=== PATIENT | male | born 1955 | race African-American/Black ===

== ENCOUNTER 2017-07-21 11:28 | Emergency (ER) | payer MEDICARE, OTHER ==
[~2017-07-21] VITALS: Ht 177.8 cm; Wt 75.0 kg
[~2017-07-21 11:28] MED LIST: AMLO10TA4 PO; ASPI-1079 PO; CLON0.1T PO; CLOP75TA16 PO; LOSA50TA20 PO; OMEP20CA4 PO; SIMV40TA5 PO
[2017-07-21 12:34] LABS: HEMATOCRIT. 30.6 % (42.0-52.0); HEMOGLOBIN. 10.1 g/dL (14.0-18.0); MEAN CORPUSCULAR HEMOGLOBIN 34.2 pg (28.0-32.0); MEAN CORPUSCULAR VOLUME 103.2 fL (80.0-94.0); MEAN PLATELET VOLUME 7.3 fl (7.4-10.4); PLATELET 157 x1000/uL (130-400); RED BLOOD CELL COUNT 2.97 mill/uL (4.7-6.1); RED CELL DISTRIBUTION WIDTH 17.5 % (11.6-14.6)
[2017-07-21 12:40] LABS: CHLORIDE 119 mEq/L (98-107)
[2017-07-21 12:51] LABS: CARBON DIOXIDE 24 mEq/L (21-32)
[2017-07-21 12:56] LABS: ETHANOL BLOOD 352 mg/dL
[2017-07-21 12:59] LABS: PLATELET ESTIMATE NORMAL
[2017-07-21 17:15] VITALS: BP 129/79
== END 2017-07-21 18:14 | disposition home or self-care (01) ==
LOC: ER 12:48
DX: F10.129 Alcohol abuse with intoxication, unspecified (principal); I10 Essential (primary) hypertension; Z86.73 Personal history of transient ischemic attack (TIA), and cerebral infarction without residual deficits; Z79.82 Long term (current) use of aspirin
CPT/HCPCS: 36415; 80053; 85025; 99284; G0482

== ENCOUNTER 2018-03-20 15:12 | Inpatient (IN) | payer MEDICARE, MEDICAID ==
[~2018-03-20] VITALS: Ht 172.7 cm; Wt 65.8 kg
[2018-03-20 16:39] LABS: HEMOGLOBIN. 9.9 g/dL (14.0-18.0); MEAN CORPUSCULAR HEMOGLOBIN 34.4 pg (28.0-32.0); MEAN CORPUSCULAR VOLUME 101.2 fL (80.0-94.0); RED BLOOD CELL COUNT 2.87 mill/uL (4.7-6.1); RED CELL DISTRIBUTION WIDTH 15.5 % (11.6-14.6)
[2018-03-20 16:45] LABS: CHLORIDE 99 mEq/L (98-107)
[2018-03-20 17:03] LABS: PLATELET 36 x1000/uL (130-400)
[2018-03-20 17:05] LABS: PLATELET ESTIMATE MARKEDLY DECREASED
[2018-03-20 17:36] LABS: INR 1.1; PARTIAL THROMBOPLASTIN TIME 28.9 sec (23.4-31.0); PROTHROMBIN TIME 11.4 sec (9.4-11.6)
[2018-03-20] MEDS ORDERED: MAGNESIUM 2 G PREMIX 50 ML IV ONE (18:45)
[2018-03-20 20:45] VITALS: BP 147/103
[2018-03-20] MEDS ORDERED: CLONIDINE 0.1MG TABLET PO PRN (22:15)
[2018-03-20] MEDS ORDERED: ONDANSETRON HCL 4MG/2ML VIAL IV PRN (22:15)
[2018-03-20] MEDS ORDERED: ACETAMINOPHEN 325MG TABLET PO PRN (22:15)
[2018-03-20] MEDS: MULTIVITAMINS,THER W-MINERALS TABLET PO SCH (22:40)
[2018-03-20] MEDS: ATORVASTATIN CALCIUM 20MG TABLET PO SCH (22:40)
[2018-03-20] MEDS: THIAMINE HCL 100MG TABLET PO SCH (22:40)
[2018-03-20] MEDS: METOPROLOL TARTRATE 50MG TABLET PO SCH (22:40)
[2018-03-20] MEDS: FOLIC ACID 1MG TABLET PO SCH (22:40)
[2018-03-21] VITALS: BP 128/83
[2018-03-21 04:00] VITALS: BP 175/111
[2018-03-21 06:31] LABS: BASOPHILS % 0.6 % (0.0-2.0); EOSINOPHILS % 0.7 % (0.0-5.0); HEMATOCRIT. 22.2 % (42.0-52.0); HEMOGLOBIN. 7.8 g/dL (14.0-18.0); LYMPHOCYTES % 11.6 % (20.0-50.0); MEAN CORPUSCULAR HEMOGLOBIN 35.2 pg (28.0-32.0); MEAN CORPUSCULAR VOLUME 100.3 fL (80.0-94.0); MEAN PLATELET VOLUME 8.6 fl (7.4-10.4); NEUTROPHILS % 81.1 % (40.0-76.0); RED BLOOD CELL COUNT 2.21 mill/uL (4.7-6.1); RED CELL DISTRIBUTION WIDTH 15.4 % (11.6-14.6)
[2018-03-21 07:02] LABS: PLATELET 29 x1000/uL (130-400)
[2018-03-21 07:43] LABS: CHLORIDE 100 mEq/L (98-107)
[2018-03-21 08:00] VITALS: BP 149/94
[2018-03-21 08:20] LABS: FOLIC ACID (FOLATE) SERUM 13.1 ng/mL (>5.38)
[2018-03-21] MEDS: THIAMINE HCL 100MG TABLET PO SCH (09:29)
[2018-03-21] MEDS: OMEPRAZOLE 20MG CAPSULE EXTENDED RELEASE PO SCH (09:29)
[2018-03-21] MEDS: FOLIC ACID 1MG TABLET PO SCH (09:29)
[2018-03-21] MEDS: MULTIVITAMINS,THER W-MINERALS TABLET PO SCH (09:29)
[2018-03-21] MEDS: AMLODIPINE 10MG TABLET PO SCH (09:29)
[2018-03-21] MEDS: METOPROLOL TARTRATE 50MG TABLET PO SCH (09:29)
[2018-03-21] MEDS: POTASSIUM CHLORIDE INJ 40 MEQ in DEXT 5% WATER 250 ML IV SCH ×2 (11:32→16:44)
[2018-03-21] MEDS: LOSARTAN POTASSIUM 50 MG TABLET PO SCH ×2 (11:35→21:20)
[2018-03-21 12:00] VITALS: BP 110/72
[2018-03-21] MEDS ORDERED: MAGNESIUM 2 G PREMIX 50 ML IV SCH (12:00)
[2018-03-21] MEDS ORDERED: POTASSIUM CHLORIDE INJ 40 MEQ in DEXT 5% WATER 250 ML IV SCH (13:00)
[2018-03-21 15:33] LABS: AMMONIA 25 uMol/L (<32)
[2018-03-21 16:00] VITALS: BP 110/77
[2018-03-21] MEDS: MAGNESIUM OXIDE 400MG TABLET PO SCH (16:44)
[2018-03-21 20:00] VITALS: BP 116/84
[2018-03-21] MEDS: CARVEDILOL 12.5MG TABLET PO SCH (21:20)
[2018-03-21] MEDS: ATORVASTATIN CALCIUM 20MG TABLET PO SCH (21:20)
[2018-03-22] VITALS: BP 117/83
[2018-03-22 04:00] VITALS: BP 133/81
[2018-03-22 08:00] VITALS: BP 146/86
[2018-03-22] MEDS: OMEPRAZOLE 20MG CAPSULE EXTENDED RELEASE PO SCH (08:00)
[2018-03-22 08:16] LABS: BASOPHILS % 0.7 % (0.0-2.0); EOSINOPHILS % 1.3 % (0.0-5.0); HEMATOCRIT. 22.1 % (42.0-52.0); HEMOGLOBIN. 7.5 g/dL (14.0-18.0); MEAN CORPUSCULAR HEMOGLOBIN 33.6 pg (28.0-32.0); MEAN PLATELET VOLUME 9.8 fl (7.4-10.4); MONOCYTES % 6.2 % (2.0-8.0); NEUTROPHILS % 79.8 % (40.0-76.0); RED BLOOD CELL COUNT 2.23 mill/uL (4.7-6.1)
[2018-03-22 08:34] LABS: CHLORIDE 100 mEq/L (98-107)
[2018-03-22] MEDS: FOLIC ACID 1MG TABLET PO SCH (09:08)
[2018-03-22] MEDS: MULTIVITAMINS,THER W-MINERALS TABLET PO SCH (09:08)
[2018-03-22] MEDS: LOSARTAN POTASSIUM 50 MG TABLET PO SCH ×2 (09:08→20:24)
[2018-03-22] MEDS: AMLODIPINE 10MG TABLET PO SCH (09:08)
[2018-03-22] MEDS: THIAMINE HCL 100MG TABLET PO SCH (09:08)
[2018-03-22] MEDS: MAGNESIUM OXIDE 400MG TABLET PO SCH (09:08)
[2018-03-22] MEDS: CARVEDILOL 12.5MG TABLET PO SCH ×2 (09:08→20:24)
[2018-03-22 10:00] LABS: PLATELET ESTIMATE MARKEDLY DECREASED
[2018-03-22 10:01] LABS: PLATELET 35 x1000/uL (130-400)
[2018-03-22 12:00] VITALS: BP 98/65
[2018-03-22 16:00] VITALS: BP 98/63
[2018-03-22] MEDS: FUROSEMIDE 40MG TABLET PO SCH (17:08)
[2018-03-22 20:00] VITALS: BP 138/81
[2018-03-22] MEDS: AMLODIPINE 5MG TABLET PO SCH (20:24)
[2018-03-22] MEDS: ATORVASTATIN CALCIUM 20MG TABLET PO SCH (20:24)
[2018-03-23] VITALS (13 sets, daily range): BP systolic 107–147; BP diastolic 74–102
[2018-03-23] MEDS: OMEPRAZOLE 20MG CAPSULE EXTENDED RELEASE PO SCH (06:47)
[2018-03-23 07:03] LABS: BASOPHILS % 0.5 % (0.0-2.0); EOSINOPHILS % 1.4 % (0.0-5.0); LYMPHOCYTES % 10.4 % (20.0-50.0); MEAN CORPUSCULAR HEMOGLOBIN 33.4 pg (28.0-32.0); MEAN CORPUSCULAR VOLUME 98.8 fL (80.0-94.0); MONOCYTES % 6.4 % (2.0-8.0); NEUTROPHILS % 81.3 % (40.0-76.0); RED BLOOD CELL COUNT 2.07 mill/uL (4.7-6.1); RED CELL DISTRIBUTION WIDTH 15.7 % (11.6-14.6)
[2018-03-23 07:29] LABS: HEMATOCRIT. 20.5 % (42.0-52.0); HEMOGLOBIN. 6.9 g/dL (14.0-18.0)
[2018-03-23 07:30] LABS: PLATELET 41 x1000/uL (130-400)
[2018-03-23 08:08] LABS: CHLORIDE 99 mEq/L (98-107)
[2018-03-23] MEDS: FUROSEMIDE 40MG TABLET PO SCH (10:21)
[2018-03-23] MEDS: FOLIC ACID 1MG TABLET PO SCH (10:21)
[2018-03-23] MEDS: THIAMINE HCL 100MG TABLET PO SCH (10:21)
[2018-03-23] MEDS: LOSARTAN POTASSIUM 50 MG TABLET PO SCH ×2 (10:22→20:35)
[2018-03-23] MEDS: MAGNESIUM OXIDE 400MG TABLET PO SCH (10:22)
[2018-03-23] MEDS: AMLODIPINE 5MG TABLET PO SCH ×2 (10:22→20:36)
[2018-03-23] MEDS: MULTIVITAMINS,THER W-MINERALS TABLET PO SCH (10:22)
[2018-03-23] MEDS: CARVEDILOL 12.5MG TABLET PO SCH ×2 (10:22→20:36)
[2018-03-23] MEDS ORDERED: POTASSIUM CHLORIDE 20MEQ TABLET SR PO NR (13:00)
[2018-03-23] MEDS ORDERED: METRONIDAZOLE 500MG TABLET PO SCH (15:30)
[2018-03-23 19:50] LABS: HEPATITIS B SURFACE ANTIGEN NEGATIVE
[2018-03-23 20:18] LABS: HEPATITIS B CORE AB IGM NEGATIVE
[2018-03-23 20:19] LABS: HEPATITIS A AB IGM NEGATIVE (NEGATIVE)
[2018-03-23] MEDS: PANTOPRAZOLE SODIUM 40 MG/VIAL IV SCH (20:36)
[2018-03-23] MEDS: ATORVASTATIN CALCIUM 20MG TABLET PO SCH (20:36)
[2018-03-23 20:43] LABS: HEMATOCRIT 26.5 % (42.0-52.0); HEMOGLOBIN 9.1 g/dL (14.0-18.0)
[2018-03-23 20:57] LABS: AMMONIA 40 uMol/L (<32)
[2018-03-24 00:26] VITALS: BP 144/90
[2018-03-24 01:29] VITALS: BP 152/80
[2018-03-24] MEDS: METRONIDAZOLE 500MG TABLET PO SCH ×3 (01:31→17:47)
[2018-03-24 03:53] VITALS: BP 140/90
[2018-03-24 08:14] VITALS: BP 134/90
[2018-03-24] MEDS: PANTOPRAZOLE SODIUM 40 MG/VIAL IV SCH ×2 (09:08→22:14)
[2018-03-24] MEDS: MULTIVITAMINS,THER W-MINERALS TABLET PO SCH (09:09)
[2018-03-24] MEDS: THIAMINE HCL 100MG TABLET PO SCH (09:09)
[2018-03-24] MEDS: LOSARTAN POTASSIUM 50 MG TABLET PO SCH ×2 (09:09→21:00)
[2018-03-24] MEDS: AMLODIPINE 5MG TABLET PO SCH ×2 (09:09→21:00)
[2018-03-24] MEDS: CARVEDILOL 12.5MG TABLET PO SCH ×2 (09:09→21:00)
[2018-03-24] MEDS: FUROSEMIDE 40MG TABLET PO SCH (09:09)
[2018-03-24] MEDS: FOLIC ACID 1MG TABLET PO SCH (09:09)
[2018-03-24] MEDS: MAGNESIUM OXIDE 400MG TABLET PO SCH (09:10)
[2018-03-24 09:30] LABS: BASOPHILS % 0.5 % (0.0-2.0); HEMATOCRIT. 26.5 % (42.0-52.0); HEMOGLOBIN. 9.2 g/dL (14.0-18.0); LYMPHOCYTES % 8.3 % (20.0-50.0); MEAN CORPUSCULAR HEMOGLOBIN 32.1 pg (28.0-32.0); MEAN CORPUSCULAR VOLUME 92.6 fL (80.0-94.0); MEAN PLATELET VOLUME 8.9 fl (7.4-10.4); MONOCYTES % 9.9 % (2.0-8.0); NEUTROPHILS % 80.3 % (40.0-76.0); PLATELET 90 x1000/uL (130-400); RED BLOOD CELL COUNT 2.86 mill/uL (4.7-6.1)
[2018-03-24 09:33] LABS: PARTIAL THROMBOPLASTIN TIME 30.4 sec (23.4-31.0); PROTHROMBIN TIME 10.2 sec (9.4-11.6)
[2018-03-24 09:39] LABS: CHLORIDE 103 mEq/L (98-107)
[2018-03-24] MEDS ORDERED: FENTANYL CITRATE/PF 50MCG/ML 2ML VIAL ONE (09:52)
[2018-03-24] MEDS ORDERED: MIDAZOLAM HCL 5 MG/5 ML VIAL ONE (09:52)
[2018-03-24] MEDS ORDERED: SIMETHICONE 40 MG/0.6 ML 30ML ONE (09:53)
[2018-03-24 10:37] LABS: AMMONIA 43 uMol/L (<32)
[2018-03-24 16:00] VITALS: BP 135/41
[2018-03-24 16:43] LABS: HEMATOCRIT 29.9 % (42.0-52.0)
[2018-03-24] MEDS ORDERED: MAGNESIUM 2 G PREMIX 50 ML IV NR (17:00)
[2018-03-24 20:00] VITALS: BP 91/61
[2018-03-24] MEDS: ATORVASTATIN CALCIUM 20MG TABLET PO SCH (22:06)
[2018-03-25] VITALS (7 sets, daily range): BP systolic 97–132; BP diastolic 65–84
[2018-03-25] MEDS: METRONIDAZOLE 500MG TABLET PO SCH ×3 (02:45→18:33)
[2018-03-25] MEDS: MAGNESIUM OXIDE 400MG TABLET PO SCH (09:14)
[2018-03-25] MEDS: PANTOPRAZOLE SODIUM 40 MG/VIAL IV SCH ×2 (09:14→20:55)
[2018-03-25] MEDS: MULTIVITAMINS,THER W-MINERALS TABLET PO SCH (09:15)
[2018-03-25] MEDS: FOLIC ACID 1MG TABLET PO SCH (09:15)
[2018-03-25] MEDS: FUROSEMIDE 40MG TABLET PO SCH (09:15)
[2018-03-25] MEDS: AMLODIPINE 5MG TABLET PO SCH ×2 (09:15→20:56)
[2018-03-25] MEDS: LOSARTAN POTASSIUM 50 MG TABLET PO SCH ×2 (09:15→20:55)
[2018-03-25] MEDS: THIAMINE HCL 100MG TABLET PO SCH (09:16)
[2018-03-25] MEDS: CARVEDILOL 12.5MG TABLET PO SCH ×2 (09:16→20:55)
[2018-03-25] MEDS: ASPIRIN 81MG EC TABLET PO SCH (13:01)
[2018-03-25 20:25] LABS: BASOPHILS % 0.5 % (0.0-2.0); EOSINOPHILS % 0.8 % (0.0-5.0); HEMATOCRIT. 25.8 % (42.0-52.0); HEMOGLOBIN. 8.8 g/dL (14.0-18.0); LYMPHOCYTES % 9.9 % (20.0-50.0); MEAN CORPUSCULAR HEMOGLOBIN 32.5 pg (28.0-32.0); MEAN CORPUSCULAR VOLUME 94.7 fL (80.0-94.0); MEAN PLATELET VOLUME 8.7 fl (7.4-10.4); MONOCYTES % 14.4 % (2.0-8.0); NEUTROPHILS % 74.4 % (40.0-76.0); PLATELET 116 x1000/uL (130-400); RED BLOOD CELL COUNT 2.72 mill/uL (4.7-6.1)
[2018-03-25 20:26] LABS: CHLORIDE 101 mEq/L (98-107)
[2018-03-25 20:34] LABS: LDL CHOLESTEROL 56 mg/dL (5-100)
[2018-03-25 20:35] LABS: HDL CHOLESTEROL 52 mg/dL (40-59)
[2018-03-25] MEDS: ATORVASTATIN CALCIUM 20MG TABLET PO SCH (20:56)
[2018-03-26] MEDS: METRONIDAZOLE 500MG TABLET PO SCH ×3 (02:05→17:07)
[2018-03-26 04:00] VITALS: BP 129/72
[2018-03-26 06:11] LABS: HEMATOCRIT. 27.7 % (42.0-52.0); HEMOGLOBIN. 9.5 g/dL (14.0-18.0); MEAN CORPUSCULAR HEMOGLOBIN 32.3 pg (28.0-32.0); MEAN CORPUSCULAR VOLUME 94.3 fL (80.0-94.0); MEAN PLATELET VOLUME 9.2 fl (7.4-10.4); PLATELET 110 x1000/uL (130-400); RED BLOOD CELL COUNT 2.94 mill/uL (4.7-6.1); RED CELL DISTRIBUTION WIDTH 18.8 % (11.6-14.6)
[2018-03-26 06:18] LABS: AMMONIA 16 uMol/L (<32)
[2018-03-26 06:41] LABS: CHLORIDE 101 mEq/L (98-107)
[2018-03-26 07:25] LABS: PHOSPHORUS 0.8 mg/dL (2.5-4.9)
[2018-03-26 08:00] VITALS: BP 138/88
[2018-03-26] MEDS: PANTOPRAZOLE SODIUM 40 MG/VIAL IV SCH (08:43)
[2018-03-26] MEDS: AMLODIPINE 5MG TABLET PO SCH (08:43)
[2018-03-26] MEDS: CARVEDILOL 12.5MG TABLET PO SCH (08:43)
[2018-03-26] MEDS: MULTIVITAMINS,THER W-MINERALS TABLET PO SCH (08:43)
[2018-03-26] MEDS: LOSARTAN POTASSIUM 50 MG TABLET PO SCH (08:43)
[2018-03-26] MEDS: FOLIC ACID 1MG TABLET PO SCH (08:43)
[2018-03-26] MEDS: FUROSEMIDE 40MG TABLET PO SCH (08:43)
[2018-03-26] MEDS: THIAMINE HCL 100MG TABLET PO SCH (08:44)
[2018-03-26] MEDS: ASPIRIN 81MG EC TABLET PO SCH (08:44)
[2018-03-26] MEDS: MAGNESIUM OXIDE 400MG TABLET PO SCH (08:44)
[2018-03-26] MEDS ORDERED: POTASSIUM-SODIUM PHOSPHATE POWDER PACKET PO NR (10:30)
[2018-03-26 12:00] VITALS: BP 112/71
[2018-03-26] MEDS ORDERED: POTASSIUM PHOS,M-BASIC-D-BASIC 20 MMOL in DEXT 5% WATER 243.3333 ML IV NR (12:00)
[2018-03-26] MEDS ORDERED: MAGNESIUM 2 G PREMIX 50 ML IV NR (12:00)
[2018-03-26 16:00] VITALS: BP 109/70
[2018-03-26 22:19] LABS: PLATELET ESTIMATE DECREASED
== END 2018-03-26 17:10 | DRG 40 ==
LOC: ER 15:30 → 7WST 19:43 → EDBEDREQ 19:52 → EDBEDREQTM 19:52 → EDBEDREQ 19:53 → ENRESERV 20:14
PROVIDERS: ADMIT Internal Medicine; ATTEND Internal Medicine
PROC: 0KBP0ZZ Excision of Left Hip Muscle, Open Approach (ICD-10-PCS; principal; 2018-03-22)
PROC: 0KBN0ZZ Excision of Right Hip Muscle, Open Approach (ICD-10-PCS; 2018-03-22)
PROC: 30233N1 Transfusion of Nonautologous Red Blood Cells into Peripheral Vein, Percutaneous Approach (ICD-10-PCS; 2018-03-23)
PROC: 0DB68ZX Excision of Stomach, Via Natural or Artificial Opening Endoscopic, Diagnostic (ICD-10-PCS; 2018-03-24)
DX: I63.9 Cerebral infarction, unspecified (principal); G93.41 Metabolic encephalopathy; E43 Unspecified severe protein-calorie malnutrition; D61.818 Other pancytopenia; L89.153 Pressure ulcer of sacral region, stage 3; I11.0 Hypertensive heart disease with heart failure; K29.61 Other gastritis with bleeding; L89.154 Pressure ulcer of sacral region, stage 4; I50.22 Chronic systolic (congestive) heart failure; I42.9 Cardiomyopathy, unspecified; I69.351 Hemiplegia and hemiparesis following cerebral infarction affecting right dominant side; E83.42 Hypomagnesemia; E83.51 Hypocalcemia; E88.09 Other disorders of plasma-protein metabolism, not elsewhere classified; G90.8 Other disorders of autonomic nervous system; K70.30 Alcoholic cirrhosis of liver without ascites; B96.89 Other specified bacterial agents as the cause of diseases classified elsewhere; G40.909 Epilepsy, unspecified, not intractable, without status epilepticus; E87.6 Hypokalemia; R00.0 Tachycardia, unspecified; E78.5 Hyperlipidemia, unspecified; F10.129 Alcohol abuse with intoxication, unspecified; Y90.4 Blood alcohol level of 80-99 mg/100 ml; J44.9 Chronic obstructive pulmonary disease, unspecified; K44.9 Diaphragmatic hernia without obstruction or gangrene; Z68.22 Body mass index [BMI] 22.0-22.9, adult; Z79.899 Other long term (current) drug therapy; Z79.82 Long term (current) use of aspirin; Z71.41 Alcohol abuse counseling and surveillance of alcoholic
CPT/HCPCS: 36415; 70450; 70551; 71045; 76700; 80048; 80053; 80061; 80076; 82140; 82270; 82607; 82728; 82746; 83735; 83880; 84100; 84484; 85014; 85018; 85025; 85610; 85730; 86705; 86709; 86803; 86850; 86900; 86920; 86945; 87340; 87493; 88305; 88312; 88313; 92610; 93005; 93306; 93880; 96365; 96366; 97112; 97162; 97166; 99285; C9113; G0482; J2250; J3010; J3475; J3480; J3490; J7030; J7040; J7050; J7060; P9016; P9034

== ENCOUNTER 2018-03-26 17:15 | Inpatient (IN) | payer MEDICARE, MEDICAID ==
[~2018-03-26] VITALS: Ht 172.7 cm; Wt 65.8 kg
[2018-03-26 20:00] VITALS: BP_SYST 112; BP_SYST 125; BP_DIAS 74; BP_DIAS 75
[2018-03-26] MEDS ORDERED: ONDANSETRON HCL 4MG/2ML VIAL IV PRN (20:00)
[2018-03-26] MEDS ORDERED: ACETAMINOPHEN 325MG TABLET PO PRN (21:00)
[2018-03-26] MEDS: CARVEDILOL 12.5MG TABLET PO SCH (22:39)
[2018-03-26] MEDS: PANTOPRAZOLE SODIUM 40 MG/VIAL IV SCH (22:39)
[2018-03-26] MEDS: ATORVASTATIN CALCIUM 40MG TABLET PO SCH (22:40)
[2018-03-26] MEDS: AMLODIPINE 5MG TABLET PO SCH (22:40)
[2018-03-26] MEDS: METRONIDAZOLE 500MG TABLET PO SCH (22:44)
[2018-03-27 06:34] LABS: HEMATOCRIT 25.4 % (42.0-52.0); HEMOGLOBIN 8.6 g/dL (14.0-18.0); PLATELET 115 x1000/uL (130-400); RED BLOOD CELL COUNT 2.67 mill/uL (4.7-6.1); RED CELL DISTRIBUTION WIDTH 18.9 % (11.6-14.6)
[2018-03-27] MEDS: METRONIDAZOLE 500MG TABLET PO SCH ×3 (06:46→21:31)
[2018-03-27 07:21] LABS: CHLORIDE 104 mEq/L (98-107)
[2018-03-27 07:41] LABS: PHOSPHORUS 0.9 mg/dL (2.5-4.9)
[2018-03-27 08:00] VITALS: BP 147/91
[2018-03-27] MEDS: THIAMINE HCL 100MG TABLET PO SCH (09:25)
[2018-03-27] MEDS: MULTIVITAMINS,THER W-MINERALS TABLET PO SCH (09:25)
[2018-03-27] MEDS: MAGNESIUM OXIDE 400MG TABLET PO SCH (09:25)
[2018-03-27] MEDS: FOLIC ACID 1MG TABLET PO SCH (09:26)
[2018-03-27] MEDS: AMLODIPINE 5MG TABLET PO SCH ×2 (09:26→20:45)
[2018-03-27] MEDS: FUROSEMIDE 40MG TABLET PO SCH (09:26)
[2018-03-27] MEDS: LOSARTAN POTASSIUM 50 MG TABLET PO SCH ×2 (09:27→17:13)
[2018-03-27] MEDS: ASPIRIN 81MG TABLET PO SCH (09:27)
[2018-03-27] MEDS: CARVEDILOL 12.5MG TABLET PO SCH ×2 (09:27→20:46)
[2018-03-27] MEDS: PANTOPRAZOLE SODIUM 40 MG/VIAL IV SCH (09:28)
[2018-03-27] MEDS ORDERED: POTASSIUM-SODIUM PHOSPHATE POWDER PACKET PO NR (09:30)
[2018-03-27] MEDS ORDERED: MAGNESIUM 2 G PREMIX 50 ML IV NR (10:30)
[2018-03-27] MEDS ORDERED: POTASSIUM PHOS,M-BASIC-D-BASIC 30 MMOL in DEXT 5% WATER 500 ML IV NR (11:00)
[2018-03-27 20:00] VITALS: BP 125/73
[2018-03-27] MEDS: ATORVASTATIN CALCIUM 40MG TABLET PO SCH (20:45)
[2018-03-28] MEDS: METRONIDAZOLE 500MG TABLET PO SCH ×3 (05:13→22:34)
[2018-03-28 06:39] LABS: HEMATOCRIT 23.5 % (42.0-52.0); HEMOGLOBIN 7.9 g/dL (14.0-18.0)
[2018-03-28 07:24] LABS: PHOSPHORUS 2.4 mg/dL (2.5-4.9)
[2018-03-28 08:00] VITALS: BP 126/78
[2018-03-28] MEDS: LOSARTAN POTASSIUM 50 MG TABLET PO SCH ×2 (09:00→17:23)
[2018-03-28] MEDS: CARVEDILOL 12.5MG TABLET PO SCH ×2 (09:00→22:34)
[2018-03-28] MEDS: MULTIVITAMINS,THER W-MINERALS TABLET PO SCH (09:25)
[2018-03-28] MEDS: ASPIRIN 81MG TABLET PO SCH (09:25)
[2018-03-28] MEDS: FUROSEMIDE 40MG TABLET PO SCH (09:25)
[2018-03-28] MEDS: POTASSIUM-SODIUM PHOSPHATE POWDER PACKET PO SCH ×2 (09:25→17:23)
[2018-03-28] MEDS: MAGNESIUM OXIDE 400MG TABLET PO SCH (09:25)
[2018-03-28] MEDS: FOLIC ACID 1MG TABLET PO SCH (09:25)
[2018-03-28] MEDS: THIAMINE HCL 100MG TABLET PO SCH (09:25)
[2018-03-28] MEDS: AMLODIPINE 5MG TABLET PO SCH ×2 (09:26→22:34)
[2018-03-28] MEDS: ZINC SULFATE 220 MG ( 50 ) CAPSULE PO SCH (13:57)
[2018-03-28] MEDS: ASCORBIC ACID 250 MG TABLET PO SCH (13:57)
[2018-03-28 20:00] VITALS: BP 128/81
[2018-03-28] MEDS: ATORVASTATIN CALCIUM 40MG TABLET PO SCH (22:34)
[2018-03-29] MEDS: METRONIDAZOLE 500MG TABLET PO SCH ×3 (06:23→22:14)
[2018-03-29 06:38] LABS: MEAN CORPUSCULAR HEMOGLOBIN 32.8 pg (28.0-32.0); MEAN CORPUSCULAR VOLUME 94.6 fL (80.0-94.0); PLATELET 128 x1000/uL (130-400); RED BLOOD CELL COUNT 2.43 mill/uL (4.7-6.1); RED CELL DISTRIBUTION WIDTH 18.5 % (11.6-14.6)
[2018-03-29 08:15] VITALS: BP 151/90
[2018-03-29] MEDS: ASCORBIC ACID 250 MG TABLET PO SCH (08:24)
[2018-03-29] MEDS: FUROSEMIDE 40MG TABLET PO SCH (08:24)
[2018-03-29] MEDS: AMLODIPINE 5MG TABLET PO SCH (08:24)
[2018-03-29] MEDS: ZINC SULFATE 220 MG ( 50 ) CAPSULE PO SCH (08:24)
[2018-03-29] MEDS: ASPIRIN 81MG TABLET PO SCH (08:24)
[2018-03-29] MEDS: FOLIC ACID 1MG TABLET PO SCH (08:24)
[2018-03-29] MEDS: POTASSIUM-SODIUM PHOSPHATE POWDER PACKET PO SCH ×2 (08:24→17:30)
[2018-03-29] MEDS: MAGNESIUM OXIDE 400MG TABLET PO SCH (08:25)
[2018-03-29] MEDS: THIAMINE HCL 100MG TABLET PO SCH (08:25)
[2018-03-29] MEDS: MULTIVITAMINS,THER W-MINERALS TABLET PO SCH (08:25)
[2018-03-29] MEDS: CARVEDILOL 12.5MG TABLET PO SCH (09:00)
[2018-03-29] MEDS: LOSARTAN POTASSIUM 50 MG TABLET PO SCH (09:00)
[2018-03-29 20:00] VITALS: BP 129/78
[2018-03-29] MEDS: CARVEDILOL 6.25 MG TABLET PO SCH (21:00)
[2018-03-29] MEDS: ATORVASTATIN CALCIUM 40MG TABLET PO SCH (22:14)
[2018-03-30] MEDS: METRONIDAZOLE 500MG TABLET PO SCH ×3 (05:14→20:57)
[2018-03-30 08:00] VITALS: BP 132/77
[2018-03-30] MEDS: CARVEDILOL 6.25 MG TABLET PO SCH ×2 (09:00→20:57)
[2018-03-30] MEDS: LOSARTAN POTASSIUM 50 MG TABLET PO SCH (09:00)
[2018-03-30 09:30] VITALS: BP 99/69
[2018-03-30] MEDS: FOLIC ACID 1MG TABLET PO SCH (09:41)
[2018-03-30] MEDS: POTASSIUM-SODIUM PHOSPHATE POWDER PACKET PO SCH ×2 (09:41→16:41)
[2018-03-30] MEDS: ASPIRIN 81MG TABLET PO SCH (09:41)
[2018-03-30] MEDS: ZINC SULFATE 220 MG ( 50 ) CAPSULE PO SCH (09:41)
[2018-03-30] MEDS: MULTIVITAMINS,THER W-MINERALS TABLET PO SCH (09:41)
[2018-03-30] MEDS: FUROSEMIDE 40MG TABLET PO SCH (09:41)
[2018-03-30] MEDS: THIAMINE HCL 100MG TABLET PO SCH (09:41)
[2018-03-30] MEDS: ASCORBIC ACID 250 MG TABLET PO SCH (09:41)
[2018-03-30] MEDS: MAGNESIUM OXIDE 400MG TABLET PO SCH (09:41)
[2018-03-30 20:00] VITALS: BP 135/77
[2018-03-30] MEDS: ATORVASTATIN CALCIUM 40MG TABLET PO SCH (20:57)
[2018-03-31 08:00] VITALS: BP 159/93
[2018-03-31] MEDS: MULTIVITAMINS,THER W-MINERALS TABLET PO SCH (08:32)
[2018-03-31] MEDS: FUROSEMIDE 40MG TABLET PO SCH (08:32)
[2018-03-31] MEDS: THIAMINE HCL 100MG TABLET PO SCH (08:32)
[2018-03-31] MEDS: ASPIRIN 81MG TABLET PO SCH (08:32)
[2018-03-31] MEDS: ASCORBIC ACID 250 MG TABLET PO SCH (08:32)
[2018-03-31] MEDS: MAGNESIUM OXIDE 400MG TABLET PO SCH (08:32)
[2018-03-31] MEDS: ZINC SULFATE 220 MG ( 50 ) CAPSULE PO SCH (08:32)
[2018-03-31] MEDS: CARVEDILOL 6.25 MG TABLET PO SCH ×2 (08:33→20:02)
[2018-03-31] MEDS: FOLIC ACID 1MG TABLET PO SCH (08:33)
[2018-03-31] MEDS: LOSARTAN POTASSIUM 50 MG TABLET PO SCH (09:00)
[2018-03-31] MEDS: TERBINAFINE HCL 1% CREAM 30GM TOP SCH (10:28)
[2018-03-31 19:30] VITALS: BP_SYST 129; BP_SYST 132; BP_SYST 133; BP_DIAS 72; BP_DIAS 78; BP_DIAS 86
[2018-03-31] MEDS: ATORVASTATIN CALCIUM 40MG TABLET PO SCH (20:02)
[2018-04-01 07:57] LABS: HEMATOCRIT. 23.8 % (42.0-52.0); MEAN CORPUSCULAR HEMOGLOBIN 32.6 pg (28.0-32.0); MEAN CORPUSCULAR VOLUME 96.5 fL (80.0-94.0); MEAN PLATELET VOLUME 8.8 fl (7.4-10.4); PLATELET 139 x1000/uL (130-400); RED BLOOD CELL COUNT 2.47 mill/uL (4.7-6.1); RED CELL DISTRIBUTION WIDTH 18.8 % (11.6-14.6)
[2018-04-01 08:00] VITALS: BP_SYST 121; BP_SYST 157; BP_DIAS 81; BP_DIAS 90
[2018-04-01 08:11] LABS: CHLORIDE 108 mEq/L (98-107)
[2018-04-01] MEDS: MULTIVITAMINS,THER W-MINERALS TABLET PO SCH (08:57)
[2018-04-01] MEDS: MAGNESIUM OXIDE 400MG TABLET PO SCH (08:57)
[2018-04-01] MEDS: THIAMINE HCL 100MG TABLET PO SCH (08:57)
[2018-04-01] MEDS: ASPIRIN 81MG TABLET PO SCH (08:57)
[2018-04-01] MEDS: ZINC SULFATE 220 MG ( 50 ) CAPSULE PO SCH (08:57)
[2018-04-01] MEDS: FUROSEMIDE 40MG TABLET PO SCH (08:57)
[2018-04-01] MEDS: ASCORBIC ACID 250 MG TABLET PO SCH (08:57)
[2018-04-01] MEDS: FOLIC ACID 1MG TABLET PO SCH (08:57)
[2018-04-01] MEDS: CARVEDILOL 6.25 MG TABLET PO SCH ×2 (08:58→22:08)
[2018-04-01] MEDS: TERBINAFINE HCL 1% CREAM 30GM TOP SCH (09:00)
[2018-04-01] MEDS: LOSARTAN POTASSIUM 50 MG TABLET PO SCH (09:00)
[2018-04-01 13:26] LABS: ATYPICAL LYMPHOCYTES 1
[2018-04-01 13:27] LABS: PLATELET ESTIMATE NORMAL
[2018-04-01] MEDS ORDERED: MAGNESIUM 2 G PREMIX 50 ML IV SCH (14:00)
[2018-04-01 20:00] VITALS: BP 141/89
[2018-04-01] MEDS: ATORVASTATIN CALCIUM 40MG TABLET PO SCH (22:08)
[2018-04-02 08:00] VITALS: BP 154/99
[2018-04-02] MEDS: CARVEDILOL 6.25 MG TABLET PO SCH ×2 (09:00→21:47)
[2018-04-02] MEDS: LOSARTAN POTASSIUM 50 MG TABLET PO SCH (09:00)
[2018-04-02] MEDS: THIAMINE HCL 100MG TABLET PO SCH (10:18)
[2018-04-02] MEDS: ASPIRIN 81MG TABLET PO SCH (10:18)
[2018-04-02] MEDS: ZINC SULFATE 220 MG ( 50 ) CAPSULE PO SCH (10:18)
[2018-04-02] MEDS: MULTIVITAMINS,THER W-MINERALS TABLET PO SCH (10:20)
[2018-04-02] MEDS: MAGNESIUM OXIDE 400MG TABLET PO SCH (10:20)
[2018-04-02] MEDS: FUROSEMIDE 40MG TABLET PO SCH (10:20)
[2018-04-02] MEDS: ASCORBIC ACID 250 MG TABLET PO SCH (10:21)
[2018-04-02] MEDS: TERBINAFINE HCL 1% CREAM 30GM TOP SCH (14:30)
[2018-04-02] MEDS: FOLIC ACID 1MG TABLET PO SCH (14:30)
[2018-04-02 20:00] VITALS: BP_SYST 120; BP_SYST 147; BP_DIAS 80; BP_DIAS 89
[2018-04-02] MEDS: ATORVASTATIN CALCIUM 40MG TABLET PO SCH (21:47)
[2018-04-03 07:25] LABS: CHLORIDE 109 mEq/L (98-107)
[2018-04-03 07:33] LABS: PHOSPHORUS 4.6 mg/dL (2.5-4.9)
[2018-04-03 08:00] VITALS: BP 157/93
[2018-04-03] MEDS: ASCORBIC ACID 250 MG TABLET PO SCH (08:35)
[2018-04-03] MEDS: CARVEDILOL 6.25 MG TABLET PO SCH ×2 (08:35→21:56)
[2018-04-03] MEDS: MAGNESIUM OXIDE 400MG TABLET PO SCH (08:35)
[2018-04-03] MEDS: MULTIVITAMINS,THER W-MINERALS TABLET PO SCH (08:35)
[2018-04-03] MEDS: FUROSEMIDE 40MG TABLET PO SCH (08:36)
[2018-04-03] MEDS: ZINC SULFATE 220 MG ( 50 ) CAPSULE PO SCH (08:36)
[2018-04-03] MEDS: TERBINAFINE HCL 1% CREAM 30GM TOP SCH (08:36)
[2018-04-03] MEDS: LOSARTAN POTASSIUM 25 MG TABLET PO SCH (08:36)
[2018-04-03] MEDS: THIAMINE HCL 100MG TABLET PO SCH (08:36)
[2018-04-03] MEDS: FOLIC ACID 1MG TABLET PO SCH (08:36)
[2018-04-03] MEDS: ASPIRIN 81MG TABLET PO SCH (08:36)
[2018-04-03 20:00] VITALS: BP 153/94
[2018-04-03] MEDS: ATORVASTATIN CALCIUM 40MG TABLET PO SCH (21:56)
[2018-04-04 08:14] VITALS: BP 171/102
[2018-04-04] MEDS: ASPIRIN 81MG TABLET PO SCH (08:14)
[2018-04-04] MEDS: THIAMINE HCL 100MG TABLET PO SCH (08:14)
[2018-04-04] MEDS: MAGNESIUM OXIDE 400MG TABLET PO SCH (08:14)
[2018-04-04] MEDS: FUROSEMIDE 40MG TABLET PO SCH (08:14)
[2018-04-04] MEDS: ASCORBIC ACID 250 MG TABLET PO SCH (08:14)
[2018-04-04] MEDS: LOSARTAN POTASSIUM 25 MG TABLET PO SCH (08:14)
[2018-04-04] MEDS: MULTIVITAMINS,THER W-MINERALS TABLET PO SCH (08:14)
[2018-04-04] MEDS: ZINC SULFATE 220 MG ( 50 ) CAPSULE PO SCH (08:14)
[2018-04-04] MEDS: FOLIC ACID 1MG TABLET PO SCH (08:14)
[2018-04-04] MEDS: CARVEDILOL 6.25 MG TABLET PO SCH ×2 (08:15→21:12)
[2018-04-04] MEDS: TERBINAFINE HCL 1% CREAM 30GM TOP SCH (08:15)
[2018-04-04 09:00] VITALS: BP_SYST 119; BP_SYST 122; BP_DIAS 84; BP_DIAS 91
[2018-04-04 20:00] VITALS: BP 153/89
[2018-04-04] MEDS: ATORVASTATIN CALCIUM 40MG TABLET PO SCH (21:12)
[2018-04-05 08:00] VITALS: BP 162/93
[2018-04-05] MEDS: FUROSEMIDE 40MG TABLET PO SCH (08:11)
[2018-04-05] MEDS: LOSARTAN POTASSIUM 25 MG TABLET PO SCH (08:11)
[2018-04-05] MEDS: ASPIRIN 81MG TABLET PO SCH (08:11)
[2018-04-05] MEDS: MAGNESIUM OXIDE 400MG TABLET PO SCH (08:11)
[2018-04-05] MEDS: MULTIVITAMINS,THER W-MINERALS TABLET PO SCH (08:11)
[2018-04-05] MEDS: THIAMINE HCL 100MG TABLET PO SCH (08:11)
[2018-04-05] MEDS: ZINC SULFATE 220 MG ( 50 ) CAPSULE PO SCH (08:11)
[2018-04-05] MEDS: FOLIC ACID 1MG TABLET PO SCH (08:11)
[2018-04-05] MEDS: ASCORBIC ACID 250 MG TABLET PO SCH (08:11)
[2018-04-05] MEDS: TERBINAFINE HCL 1% CREAM 30GM TOP SCH (08:12)
[2018-04-05] MEDS: CARVEDILOL 6.25 MG TABLET PO SCH ×2 (08:12→21:47)
[2018-04-05 09:00] VITALS: BP 124/80
[2018-04-05 20:00] VITALS: BP 152/94
[2018-04-05] MEDS: ATORVASTATIN CALCIUM 40MG TABLET PO SCH (21:47)
[2018-04-05 22:00] VITALS: BP_SYST 126; BP_SYST 129; BP_DIAS 74
[2018-04-06 08:00] VITALS: BP 164/98
[2018-04-06] MEDS: FOLIC ACID 1MG TABLET PO SCH (09:33)
[2018-04-06] MEDS: LOSARTAN POTASSIUM 25 MG TABLET PO SCH (09:33)
[2018-04-06] MEDS: ASCORBIC ACID 250 MG TABLET PO SCH (09:33)
[2018-04-06] MEDS: ASPIRIN 81MG TABLET PO SCH (09:34)
[2018-04-06] MEDS: MAGNESIUM OXIDE 400MG TABLET PO SCH (09:34)
[2018-04-06] MEDS: ZINC SULFATE 220 MG ( 50 ) CAPSULE PO SCH (09:34)
[2018-04-06] MEDS: MULTIVITAMINS,THER W-MINERALS TABLET PO SCH (09:34)
[2018-04-06] MEDS: FUROSEMIDE 40MG TABLET PO SCH (09:34)
[2018-04-06] MEDS: THIAMINE HCL 100MG TABLET PO SCH (09:34)
[2018-04-06] MEDS: CARVEDILOL 6.25 MG TABLET PO SCH ×2 (09:34→21:19)
[2018-04-06] MEDS: TERBINAFINE HCL 1% CREAM 30GM TOP SCH (09:34)
[2018-04-06 20:00] VITALS: BP 160/94
[2018-04-06] MEDS: ATORVASTATIN CALCIUM 40MG TABLET PO SCH (21:18)
[2018-04-07] VITALS (13 sets, daily range): BP systolic 139–181; BP diastolic 83–103
[2018-04-07] MEDS: CLONIDINE 0.1MG TABLET PO PRN ×2 (00:19→06:31)
[2018-04-07 06:31] LABS: BASOPHILS % 0.8 % (0.0-2.0); EOSINOPHILS % 1.8 % (0.0-5.0); HEMATOCRIT. 21.7 % (42.0-52.0); HEMOGLOBIN. 7.4 g/dL (14.0-18.0); LYMPHOCYTES % 12.6 % (20.0-50.0); MEAN CORPUSCULAR HEMOGLOBIN 33.4 pg (28.0-32.0); MEAN CORPUSCULAR VOLUME 98.1 fL (80.0-94.0); NEUTROPHILS % 72.8 % (40.0-76.0); PLATELET 169 x1000/uL (130-400); RED BLOOD CELL COUNT 2.21 mill/uL (4.7-6.1); RED CELL DISTRIBUTION WIDTH 18.4 % (11.6-14.6)
[2018-04-07 06:46] LABS: CHLORIDE 113 mEq/L (98-107)
[2018-04-07 06:58] LABS: TOTAL IRON BINDING CAPACITY 223 ug/dL (250-450)
[2018-04-07 06:59] LABS: PHOSPHORUS 4.8 mg/dL (2.5-4.9)
[2018-04-07 07:00] LABS: LDL CHOLESTEROL 45 mg/dL (5-100)
[2018-04-07 07:02] LABS: HDL CHOLESTEROL 39 mg/dL (40-59)
[2018-04-07] MEDS: ASPIRIN 81MG TABLET PO SCH (09:12)
[2018-04-07] MEDS: ZINC SULFATE 220 MG ( 50 ) CAPSULE PO SCH (09:12)
[2018-04-07] MEDS: LOSARTAN POTASSIUM 25 MG TABLET PO SCH (09:12)
[2018-04-07] MEDS: ASCORBIC ACID 250 MG TABLET PO SCH (09:12)
[2018-04-07] MEDS: THIAMINE HCL 100MG TABLET PO SCH (09:12)
[2018-04-07] MEDS: MAGNESIUM OXIDE 400MG TABLET PO SCH (09:13)
[2018-04-07] MEDS: CARVEDILOL 6.25 MG TABLET PO SCH ×2 (09:13→23:04)
[2018-04-07] MEDS: FUROSEMIDE 40MG TABLET PO SCH (09:13)
[2018-04-07] MEDS: FOLIC ACID 1MG TABLET PO SCH (09:13)
[2018-04-07] MEDS: MULTIVITAMINS,THER W-MINERALS TABLET PO SCH (09:13)
[2018-04-07] MEDS: TERBINAFINE HCL 1% CREAM 30GM TOP SCH (09:14)
[2018-04-07 10:32] LABS: FERRITIN 164 ng/mL (22-322)
[2018-04-07] MEDS ORDERED: CLONIDINE 0.1MG TABLET PO PRN (11:30)
[2018-04-07 11:52] LABS: VITAMIN B12 SERUM 397 pg/mL (211-911)
[2018-04-07 11:54] LABS: FOLIC ACID (FOLATE) SERUM > 20.00 ng/mL (>5.38)
[2018-04-07] MEDS: PANTOPRAZOLE SODIUM 40 MG/VIAL IV SCH ×2 (18:00→23:48)
[2018-04-07] MEDS: AMLODIPINE 5MG TABLET PO SCH ×2 (18:00→23:03)
[2018-04-07] MEDS: ATORVASTATIN CALCIUM 40MG TABLET PO SCH (23:03)
[2018-04-08 02:25] VITALS: BP 147/93
[2018-04-08 06:22] LABS: BASOPHILS % 0.6 % (0.0-2.0); EOSINOPHILS % 2.1 % (0.0-5.0); HEMATOCRIT. 30.3 % (42.0-52.0); HEMOGLOBIN. 10.3 g/dL (14.0-18.0); LYMPHOCYTES % 11.6 % (20.0-50.0); MEAN CORPUSCULAR HEMOGLOBIN 31.5 pg (28.0-32.0); MEAN CORPUSCULAR VOLUME 92.9 fL (80.0-94.0); MEAN PLATELET VOLUME 8.7 fl (7.4-10.4); NEUTROPHILS % 73.7 % (40.0-76.0); PLATELET 167 x1000/uL (130-400); RED BLOOD CELL COUNT 3.26 mill/uL (4.7-6.1); RED CELL DISTRIBUTION WIDTH 21.5 % (11.6-14.6)
[2018-04-08 07:28] LABS: CHLORIDE 110 mEq/L (98-107)
[2018-04-08 08:22] VITALS: BP 135/99
[2018-04-08 08:49] LABS: CLARITY URINE CLEAR (CLEAR); COLOR URINE YELLOW (YELLOW); KETONES URINE NEGATIVE (NEGATIVE); LEUKOCYTE ESTERASE URINE NEGATIVE (NEGATIVE); NITRITE URINE NEGATIVE (NEGATIVE); OCCULT BLOOD URINE NEGATIVE (NEGATIVE); PROTEIN URINE TRACE (NEGATIVE); SPECIFIC GRAVITY URINE 1.013 (1.005-1.030); UROBILINOGEN URINE 0.2 E.U./dL (0.2-1.0)
[2018-04-08] MEDS: FUROSEMIDE 40MG TABLET PO SCH (08:49)
[2018-04-08] MEDS: PANTOPRAZOLE SODIUM 40 MG/VIAL IV SCH ×2 (08:49→22:01)
[2018-04-08] MEDS: MULTIVITAMINS,THER W-MINERALS TABLET PO SCH (08:50)
[2018-04-08] MEDS: FOLIC ACID 1MG TABLET PO SCH (08:50)
[2018-04-08] MEDS: THIAMINE HCL 100MG TABLET PO SCH (08:50)
[2018-04-08] MEDS: ZINC SULFATE 220 MG ( 50 ) CAPSULE PO SCH (08:50)
[2018-04-08] MEDS: ASCORBIC ACID 250 MG TABLET PO SCH (08:50)
[2018-04-08] MEDS: MAGNESIUM OXIDE 400MG TABLET PO SCH (08:50)
[2018-04-08] MEDS: AMLODIPINE 5MG TABLET PO SCH ×2 (08:50→22:01)
[2018-04-08] MEDS: CARVEDILOL 6.25 MG TABLET PO SCH ×2 (08:51→22:02)
[2018-04-08] MEDS: LOSARTAN POTASSIUM 25 MG TABLET PO SCH (08:51)
[2018-04-08] MEDS: TERBINAFINE HCL 1% CREAM 30GM TOP SCH (08:51)
[2018-04-08 11:45] VITALS: BP 124/74
[2018-04-08 20:00] VITALS: BP 135/84
[2018-04-08] MEDS: ATORVASTATIN CALCIUM 40MG TABLET PO SCH (22:02)
[2018-04-09 06:40] LABS: BASOPHILS % 0.4 % (0.0-2.0); EOSINOPHILS % 2.4 % (0.0-5.0); HEMATOCRIT. 28.3 % (42.0-52.0); HEMOGLOBIN. 9.6 g/dL (14.0-18.0); LYMPHOCYTES % 13.2 % (20.0-50.0); MEAN PLATELET VOLUME 8.5 fl (7.4-10.4); MONOCYTES % 14.6 % (2.0-8.0); NEUTROPHILS % 69.4 % (40.0-76.0); PLATELET 180 x1000/uL (130-400); RED BLOOD CELL COUNT 3.01 mill/uL (4.7-6.1); RED CELL DISTRIBUTION WIDTH 20.9 % (11.6-14.6)
[2018-04-09 07:08] LABS: CHLORIDE 111 mEq/L (98-107)
[2018-04-09 08:00] VITALS: BP 178/97
[2018-04-09] MEDS: TERBINAFINE HCL 1% CREAM 30GM TOP SCH (09:00)
[2018-04-09] MEDS: ASCORBIC ACID 250 MG TABLET PO SCH (10:33)
[2018-04-09] MEDS: FUROSEMIDE 40MG TABLET PO SCH (10:33)
[2018-04-09] MEDS: FOLIC ACID 1MG TABLET PO SCH (10:33)
[2018-04-09] MEDS: MAGNESIUM OXIDE 400MG TABLET PO SCH (10:33)
[2018-04-09] MEDS: MULTIVITAMINS,THER W-MINERALS TABLET PO SCH (10:33)
[2018-04-09] MEDS: LOSARTAN POTASSIUM 25 MG TABLET PO SCH (10:34)
[2018-04-09] MEDS: CARVEDILOL 6.25 MG TABLET PO SCH ×2 (10:34→21:42)
[2018-04-09] MEDS: THIAMINE HCL 100MG TABLET PO SCH (10:34)
[2018-04-09] MEDS: PANTOPRAZOLE SODIUM 40 MG/VIAL IV SCH ×2 (10:35→21:41)
[2018-04-09] MEDS: ZINC SULFATE 220 MG ( 50 ) CAPSULE PO SCH (10:35)
[2018-04-09] MEDS: AMLODIPINE 5MG TABLET PO SCH ×2 (10:36→21:42)
[2018-04-09] MEDS: DOCUSATE SODIUM 250MG CAPSULE PO SCH (17:20)
[2018-04-09 20:00] VITALS: BP 140/80
[2018-04-09] MEDS: ATORVASTATIN CALCIUM 40MG TABLET PO SCH (21:42)
[2018-04-10 08:00] VITALS: BP 150/96
[2018-04-10] MEDS: MAGNESIUM OXIDE 400MG TABLET PO SCH (08:46)
[2018-04-10] MEDS: FUROSEMIDE 40MG TABLET PO SCH (08:46)
[2018-04-10] MEDS: ASCORBIC ACID 250 MG TABLET PO SCH (08:46)
[2018-04-10] MEDS: MULTIVITAMINS,THER W-MINERALS TABLET PO SCH (08:46)
[2018-04-10] MEDS: FOLIC ACID 1MG TABLET PO SCH (08:46)
[2018-04-10] MEDS: PANTOPRAZOLE SODIUM 40 MG/VIAL IV SCH (08:46)
[2018-04-10] MEDS: ZINC SULFATE 220 MG ( 50 ) CAPSULE PO SCH (08:46)
[2018-04-10] MEDS: THIAMINE HCL 100MG TABLET PO SCH (08:46)
[2018-04-10] MEDS: DOCUSATE SODIUM 250MG CAPSULE PO SCH (08:46)
[2018-04-10] MEDS: LOSARTAN POTASSIUM 25 MG TABLET PO SCH (08:47)
[2018-04-10] MEDS: CARVEDILOL 6.25 MG TABLET PO SCH (08:47)
[2018-04-10] MEDS: AMLODIPINE 5MG TABLET PO SCH (09:00)
[2018-04-10] MEDS: TERBINAFINE HCL 1% CREAM 30GM TOP SCH (09:00)
[2018-04-10 10:59] VITALS: BP 135/72
[2018-04-12 09:10] LABS: 25-HYDROXY VITAMIN D3 19 ng/mL (.)
== END 2018-04-10 14:50 | disposition home health service (06) | DRG 64 ==
PROVIDERS: ADMIT Psychiatry & Neurology Neurology; ATTEND Internal Medicine
PROC: 0HBRXZZ Excision of Toe Nail, External Approach (ICD-10-PCS; principal; 2018-04-02)
PROC: 0HBRXZZ Excision of Toe Nail, External Approach (ICD-10-PCS; 2018-04-02)
PROC: 0HBRXZZ Excision of Toe Nail, External Approach (ICD-10-PCS; 2018-04-02)
PROC: 0HBRXZZ Excision of Toe Nail, External Approach (ICD-10-PCS; 2018-04-02)
PROC: 0HBRXZZ Excision of Toe Nail, External Approach (ICD-10-PCS; 2018-04-02)
PROC: 0HBRXZZ Excision of Toe Nail, External Approach (ICD-10-PCS; 2018-04-02)
PROC: 0HBRXZZ Excision of Toe Nail, External Approach (ICD-10-PCS; 2018-04-02)
PROC: 0HBRXZZ Excision of Toe Nail, External Approach (ICD-10-PCS; 2018-04-02)
PROC: 0HBRXZZ Excision of Toe Nail, External Approach (ICD-10-PCS; 2018-04-02)
PROC: 0HBRXZZ Excision of Toe Nail, External Approach (ICD-10-PCS; 2018-04-02)
PROC: 30233N1 Transfusion of Nonautologous Red Blood Cells into Peripheral Vein, Percutaneous Approach (ICD-10-PCS; 2018-04-07)
DX: I63.9 Cerebral infarction, unspecified (principal); I50.23 Acute on chronic systolic (congestive) heart failure; E43 Unspecified severe protein-calorie malnutrition; D61.818 Other pancytopenia; A04.72 Enterocolitis due to Clostridium difficile, not specified as recurrent; E11.22 Type 2 diabetes mellitus with diabetic chronic kidney disease; E11.42 Type 2 diabetes mellitus with diabetic polyneuropathy; I42.9 Cardiomyopathy, unspecified; G81.91 Hemiplegia, unspecified affecting right dominant side; I13.0 Hypertensive heart and chronic kidney disease with heart failure and stage 1 through stage 4 chronic kidney disease, or unspecified chronic kidney disease; E83.39 Other disorders of phosphorus metabolism; E83.42 Hypomagnesemia; G40.909 Epilepsy, unspecified, not intractable, without status epilepticus; R53.81 Other malaise; E78.5 Hyperlipidemia, unspecified; E87.6 Hypokalemia; F10.129 Alcohol abuse with intoxication, unspecified; R00.0 Tachycardia, unspecified; R26.9 Unspecified abnormalities of gait and mobility; K21.9 Gastro-esophageal reflux disease without esophagitis; F41.9 Anxiety disorder, unspecified; E83.51 Hypocalcemia; F17.210 Nicotine dependence, cigarettes, uncomplicated; F32.9 Major depressive disorder, single episode, unspecified; N18.9 Chronic kidney disease, unspecified; D63.8 Anemia in other chronic diseases classified elsewhere; F06.31 Mood disorder due to known physiological condition with depressive features; F01.50 Vascular dementia, unspecified severity, without behavioral disturbance, psychotic disturbance, mood disturbance, and anxiety; R32 Unspecified urinary incontinence; B35.1 Tinea unguium; L60.3 Nail dystrophy; L60.2 Onychogryphosis; B35.3 Tinea pedis; L57.0 Actinic keratosis; I95.1 Orthostatic hypotension; G83.11 Monoplegia of lower limb affecting right dominant side; G83.21 Monoplegia of upper limb affecting right dominant side; D50.9 Iron deficiency anemia, unspecified; R15.9 Full incontinence of feces; Y90.4 Blood alcohol level of 80-99 mg/100 ml; M62.50 Muscle wasting and atrophy, not elsewhere classified, unspecified site; R41.89 Other symptoms and signs involving cognitive functions and awareness; G90.8 Other disorders of autonomic nervous system; K70.30 Alcoholic cirrhosis of liver without ascites; J44.9 Chronic obstructive pulmonary disease, unspecified; B19.20 Unspecified viral hepatitis C without hepatic coma; N28.1 Cyst of kidney, acquired; K82.4 Cholesterolosis of gallbladder; F39 Unspecified mood [affective] disorder; L60.0 Ingrowing nail; K29.60 Other gastritis without bleeding; Z86.73 Personal history of transient ischemic attack (TIA), and cerebral infarction without residual deficits; Z82.49 Family history of ischemic heart disease and other diseases of the circulatory system; Z68.22 Body mass index [BMI] 22.0-22.9, adult; Z79.899 Other long term (current) drug therapy; Z79.02 Long term (current) use of antithrombotics/antiplatelets
CPT/HCPCS: 36415; 71045; 80048; 80053; 80061; 81003; 82306; 82607; 82728; 82746; 82962; 83036; 83540; 83550; 83735; 84100; 84443; 84630; 85014; 85018; 85025; 85027; 86850; 86900; 86920; 87086; 92523; 92610; 93005; 93970; 97022; 97110; 97112; 97116; 97163; 97166; 97530; 97535; C9113; J3475; J3490; J7040; J7050; J7060; P9021; A5200